=== PATIENT | male | born 1990 | race Caucasian/White ===

== ENCOUNTER 2022-02-20 18:34 | Emergency (ER) | payer SELFPAY ==
[~2022-02-20] VITALS: Ht 177.8 cm; Wt 93.0 kg
[2022-02-20] MEDS ORDERED: TERBUTALINE SULF5 MG PO (19:06)
[2022-02-20] MEDS ORDERED: ASPIRIN 325 MG TAB PO ONE (19:15)
== END 2022-02-20 21:11 | disposition home or self-care (01) ==
LOC: FSED 18:56
DX: R07.9 Chest pain, unspecified (principal)
CPT/HCPCS: 71046; 80048; 82553; 84484; 85025; 85379; 99283